=== PATIENT | female | born 1950 | race Caucasian/White ===

== ENCOUNTER → 2019-04-11 | Outpatient (CLI) | payer MEDICARE, OTHER | LOC: M.RAD 03-30 11:06 | DX: Z12.31 Encounter for screening mammogram for malignant neoplasm of breast (principal); Z13.820 Encounter for screening for osteoporosis; Z78.0 Asymptomatic menopausal state; Z85.3 Personal history of malignant neoplasm of breast; Z90.11 Acquired absence of right breast and nipple ==